=== PATIENT | female | born 1955 | race Caucasian/White ===

== ENCOUNTER 2020-02-02 06:00 | Day surgery (SDC) | payer MEDICARE, MEDICAID ==
[~2020-02-02] VITALS: Ht 165.1 cm; Wt 105.6 kg
[2020-02-02] VITALS (11 sets, daily range): BP systolic 102–138; BP diastolic 55–88
[~2020-02-02 06:00] MED LIST: ALPR-624 PO; BUPR300T53 PO; GABA300C PO; LORA10TA61 PO; METOPROLOL PO; MONT10TA21 PO; OMEP20CA4 PO; SIMV20TA PO; ZOLP10TA5 PO
[2020-02-02] MEDS ORDERED: normal saline 1,000 ML IV SCH ×2 (06:15→09:20)
[2020-02-02] MEDS ORDERED: diphenhydrAMINE 25mg capsule PO PRN (06:15)
[2020-02-02 06:45] LABS: BASOPHILS # (AUTO) 0.1 X10'3 (0-0.2); BASOPHILS % (AUTO) 1.1 % (0-1); EOSINOPHILS # (AUTO) 0.1 X10'3 (0-0.9); EOSINOPHILS % (AUTO) 2.1 % (0-6); HEMATOCRIT 42.3 % (35.0-45.0); LYMPHOCYTES # (AUTO) 2.1 X10'3 (1.1-4.8); LYMPHOCYTES % (AUTO) 31.3 % (21-51); MEAN CORPUSCULAR HEMOGLOBIN 30.9 PG (27.0-31.0); MEAN CORPUSCULAR HGB CONC 33.1 g/dL (33.0-36.5); MEAN CORPUSCULAR VOLUME 93.5 FL (78-98); MEAN PLATELET VOLUME 7.4 FL (7.4-10.4); MONOCYTES # (AUTO) 0.7 X10'3 (0-0.9); MONOCYTES % (AUTO) 10.9 % (2-12); NEUTROPHILS # (AUTO) 3.7 X10'3 (1.8-7.7); NEUTROPHILS % (AUTO) 54.6 % (42-75); PLATELET COUNT 222 X10'3 (140-440); RED BLOOD COUNT 4.53 X10'6 (4.20-5.60); RED CELL DISTRIBUTION WIDTH 13.4 % (11.5-14.5); WHITE BLOOD COUNT 6.9 X10'3 (4.5-11.0)
[2020-02-02] MEDS ORDERED: SPIR25TA5 PO (06:45)
[2020-02-02] MEDS ORDERED: CHOL20004 PO (06:45)
[2020-02-02] MEDS ORDERED: SOTA80TA46 PO (06:46)
[2020-02-02] MEDS ORDERED: ACET-812 PO (06:47)
[2020-02-02 07:05] LABS: ALBUMIN 3.8 G/DL (3.4-5.0); ANION GAP 8 (8-16); BLOOD UREA NITROGEN 14 MG/DL (7-18); CALCIUM 9.4 MG/DL (8.5-10.1); CHLORIDE 105 MMOL/L (99-107); GLUCOSE 106 MG/DL (70-104); MAGNESIUM 1.9 MG/DL (1.5-2.4); SODIUM 142 MMOL/L (135-145); eGFR 56 ML/MIN
[2020-02-02] MEDS ORDERED: iohexol 350 MG/ML 50ML vial IV ONE (07:34)
[2020-02-02] MEDS ORDERED: iohexol 350MG/ML 100ml bottle IV ONE (07:34)
[2020-02-02] MEDS ORDERED: fentaNYL/PF 50MCG/1 ML 2ML syringe ONE (07:34)
[2020-02-02] MEDS ORDERED: LIDOcaine 1% (10mg/ml)w/preservative injection 20ml MDV ONE (07:34)
[2020-02-02] MEDS ORDERED: heparin 1,000unit/ml 10ml vial 10 ML ONE (07:34)
[2020-02-02] MEDS ORDERED: midazolam 2 mg/2 ml injection ONE ×2 (07:34→08:01)
[2020-02-02] MEDS ORDERED: verapamil 2.5 mg/ml inj IV ONE (08:01)
[2020-02-02] MEDS ORDERED: nitroGLYCERIN-Tridil 50MG/D5W 250 ML IV ONE (08:01)
== END 2020-02-02 14:00 | disposition home or self-care (01) ==
LOC: SSTAY O 06:00
PROVIDERS: ATTEND Internal Medicine Cardiovascular Disease
DX: R07.89 Other chest pain (principal); I47.2 Ventricular tachycardia; I42.0 Dilated cardiomyopathy; E78.00 Pure hypercholesterolemia, unspecified; K21.9 Gastro-esophageal reflux disease without esophagitis; I10 Essential (primary) hypertension; Z85.830 Personal history of malignant neoplasm of bone; Z88.2 Allergy status to sulfonamides; Z98.890 Other specified postprocedural states; Z90.710 Acquired absence of both cervix and uterus; Z90.49 Acquired absence of other specified parts of digestive tract
CPT/HCPCS: 36415; 80048; 83735; 85025; 85610; 93005; 93458; 99152; 99153; C1769; C1894; J1644; J2001; J2250; J3010; J7030; Q0163; Q9967; A6258; C1760; J3490

== ENCOUNTER 2020-02-19 10:35 | Outpatient (CLI) | payer MEDICARE, MEDICAID ==
[~2020-02-19 10:35] MED LIST changes: +ACET-812 PO; +CHOL20004 PO; -LORA10TA61 PO; -METOPROLOL PO; -MONT10TA21 PO; +SOTA80TA46 PO; +SPIR25TA5 PO
== END 2020-02-19 23:59 | disposition home or self-care (01) ==
LOC: VAS 10:35
PROVIDERS: ATTEND Podiatrist Foot & Ankle Surgery
DX: M79.672 Pain in left foot (principal)
CPT/HCPCS: 93971

== ENCOUNTER 2021-02-28 13:17 | Emergency (ER) | payer MEDICARE, MEDICAID ==
[~2021-02-28] VITALS: Ht 165.1 cm; Wt 106.8 kg
[2021-02-28] MEDS ORDERED: COROTSUS OT (16:27)
[2021-02-28 16:54] VITALS: BP 153/84
--- NOTE | 2021-02-28 16:56 | NUR ---
i dc'd pt at [id number]
== END 2021-02-28 16:55 | disposition home or self-care (01) ==
LOC: ER 13:18
DX: M79.604 Pain in right leg (principal); H60.91 Unspecified otitis externa, right ear; I10 Essential (primary) hypertension; Z87.891 Personal history of nicotine dependence; Z98.890 Other specified postprocedural states; Z59.0 Homelessness; Z72.89 Other problems related to lifestyle; Z88.2 Allergy status to sulfonamides; Z79.899 Other long term (current) drug therapy
CPT/HCPCS: 93971; 99284

== ENCOUNTER 2021-05-11 12:04 | Emergency (ER) | payer MEDICARE, MEDICAID ==
[~2021-05-11] VITALS: Ht 165.1 cm; Wt 110.0 kg
[~2021-05-11 12:04] MED LIST changes: +COROTSUS OT
[2021-05-11 12:29] VITALS: BP 196/94
[2021-05-11] MEDS ORDERED: LIDOcaine 1% W/epiNEPHrine 1:200,000 10ml vial IJ ONE (12:30)
[2021-05-11] MEDS ORDERED: TETanus/Pertussis (Acell)/Diphther VAC/PF (Tdap-Adult) 0.5ml syringe IMVAC ONE (12:30)
== END 2021-05-11 17:47 | disposition home or self-care (01) ==
LOC: ER 12:05
DX: S51.812A Laceration without foreign body of left forearm, initial encounter (principal); I10 Essential (primary) hypertension; Z95.0 Presence of cardiac pacemaker; Z72.89 Other problems related to lifestyle; Z85.9 Personal history of malignant neoplasm, unspecified; Z88.2 Allergy status to sulfonamides; Z79.899 Other long term (current) drug therapy; W25.XXXA Contact with sharp glass, initial encounter; Y93.01 Activity, walking, marching and hiking; Y92.89 Other specified places as the place of occurrence of the external cause; Y99.8 Other external cause status
CPT/HCPCS: 12002; 73110; 90471; 90715; 99283

== ENCOUNTER 2024-09-29 10:11 | Emergency (ER) | payer MEDICARE, MEDICAID ==
[~2024-09-29] VITALS: Ht 165.1 cm; Wt 100.0 kg
[~2024-09-29 10:11] MED LIST changes: -ACET-812 PO; +ALBU18HF2 INH; +ASPI-1 PO; +AZEL137S4 BOTHNARES; +BUDE10.22 INH; +CETI10TA14 PO; -COROTSUS OT; +FLUT16SP2 BOTHNARES; +MET0.75G TP; +MULT-25 PO; +NITR0.4T51 SL; -OMEP20CA4 PO; +PANT40TA54 PO; +ROSU40TA PO; -SIMV20TA PO; -ZOLP10TA5 PO
[2024-09-29 10:16] VITALS: TEMP 98.2
[2024-09-29] MEDS: normal saline 1000ML IV soln IVB ONE ×2 (10:49→13:34)
[2024-09-29 11:20] LABS: BASOPHILS % (AUTO) 0.3 % (0-1); EOSINOPHILS % (AUTO) 0.1 % (0-6); HEMATOCRIT 38.8 % (35.0-45.0); HEMOGLOBIN 13.3 g/dl (12.0-16.0); LYMPHOCYTES # (AUTO) 0.8 X10'3 (1.1-4.8); MEAN CORPUSCULAR HEMOGLOBIN 32.1 PG (27.0-31.0); MEAN CORPUSCULAR HGB CONC 34.2 g/dL (33.0-36.5); MEAN CORPUSCULAR VOLUME 93.9 FL (78-98); MEAN PLATELET VOLUME 8.4 FL (7.4-10.4); MONOCYTES % (AUTO) 19.7 % (2-12); NEUTROPHILS # (AUTO) 7.4 X10'3 (1.8-7.7); NEUTROPHILS % (AUTO) 71.9 % (42-75); PLATELET COUNT 140 X10'3 (140-440); RED BLOOD COUNT 4.13 X10'6 (4.20-5.60); RED CELL DISTRIBUTION WIDTH 13.9 % (11.5-14.5); WHITE BLOOD COUNT 10.3 X10'3 (4.5-11.0)
[2024-09-29 11:37] LABS: ALANINE AMINOTRANSFERASE 43 U/L (12-78); ALBUMIN 2.5 G/DL (3.4-5.0); ALBUMIN/GLOBULIN RATIO 0.6 (1.1-1.5); ALKALINE PHOSPHATASE 90 IU/L (46-116); ANION GAP 10 (8-16); ASPARTATE AMINO TRANSFERASE 38 U/L (10-37); BILIRUBIN,TOTAL 0.5 MG/DL (0.1-1.0); BLOOD UREA NITROGEN 23 MG/DL (7-18); BUN/CREATININE RATIO 33.3 (10.0-20.0); CALCIUM 8.8 MG/DL (8.5-10.1); CHLORIDE 100 MMOL/L (99-107); CREATININE 0.69 MG/DL (0.40-0.90); GLUCOSE 94 MG/DL (70-104); LIPASE 20 U/L (16-77); MAGNESIUM 1.6 MG/DL (1.5-2.4); SODIUM 137 MMOL/L (135-145); TOTAL CARBON DIOXIDE 26.6 MMOL/L (24-32); eCRCL 68 ML/MIN; eGFR 84 ML/MIN
[2024-09-29] MEDS: magnesium sulf-water 2g/50mL 50 ML IV ONE (11:45)
[2024-09-29] MEDS ORDERED: ONDA-243 PO (12:21)
[2024-09-29] MEDS ORDERED: POTA-205 PO (12:21)
[2024-09-29 12:54] LABS: BILIRUBIN,URINE SMALL (Neg); CLARITY,URINE SLIGHTLY CLOUDY (Clear); COLOR,URINE YELLOW (Yellow); GLUCOSE, URINE NEGATIVE (Neg); KETONES,URINE >=80 mg/dl (Neg); LEUKOCYTE ESTERASE ,URINE SMALL (Neg); NITRITES, URINE POSITIVE (Neg); OCCULT BLOOD,URINE MODERATE (Neg); PROTEIN,URINE 30 mg/dl (Neg); UROBILINOGEN,URINE 0.2 E.U/dL (0.2-1.0)
[2024-09-29 13:01] LABS: UA COLLECTION TYPE CLN CATCH MIDSTREAM
[2024-09-29 13:03] LABS: BACTERIA,URINE 2+ /HPF (Neg); MUCUS STRANDS NONE SEEN /LPF (Neg); SQUAMOUS EPITHELIAL CELL,UR FEW /LPF (FEW); TRANSITIONAL EPI CELLS,URINE FEW /HPF; WBC CLUMPS,URINE MODERATE /HPF (NEGATIVE); WBC,URINE 50-100 /HPF (0-4)
[2024-09-29] MEDS: potassium CL 10mEq/100ml bag 100 ML IV ONE (13:34)
[2024-09-29] MEDS: magnesium oxide 400mg tablet PO ONE (13:58)
[2024-09-29] MEDS: potassium Cl 20 mEq SR tablet PO STA (13:58)
[2024-09-29 14:09] VITALS: BP 156/78; PULSE 68; RESP 16; O2SAT 98
[2024-09-29] MEDS ORDERED: NITR100C PO (20:22)
== END 2024-09-29 14:10 | disposition home or self-care (01) ==
LOC: ER 10:12
DX: R19.7 Diarrhea, unspecified (principal); E86.0 Dehydration; E87.6 Hypokalemia; E83.42 Hypomagnesemia; N39.0 Urinary tract infection, site not specified; E78.00 Pure hypercholesterolemia, unspecified; J44.9 Chronic obstructive pulmonary disease, unspecified; I10 Essential (primary) hypertension; Z88.2 Allergy status to sulfonamides; Z79.82 Long term (current) use of aspirin; Z79.899 Other long term (current) drug therapy; Z90.49 Acquired absence of other specified parts of digestive tract; Z90.710 Acquired absence of both cervix and uterus; Z95.0 Presence of cardiac pacemaker
CPT/HCPCS: 80053; 81001; 83690; 83735; 85025; 87077; 87088; 87186; 96361; 96365; 99284; J3480; J7030

== ENCOUNTER 2025-02-16 10:47 | Outpatient (CLI) | payer MEDICARE, MEDICAID ==
[~2025-02-16 10:47] MED LIST changes: +NITR100C PO; +ONDA-243 PO; +POTA-205 PO
[2025-02-16] MEDS ORDERED: iohexol 300mg/ml 100ml inj. ONE (11:18)
--- NOTE | 2025-02-16 17:52 | RADIOLOGY REPORT ---
Exam: CT CT ABDOMEN PELVIS W/WO IV CONTRAST History: PELVIC AND PERINEAL PAIN Comparison Study: None Technique: Multidetector spiral CT of the abdomen and pelvis was performed from lung bases to pubic s ymphysis. Initial imaging was done without IV contrast, followed by post contrast images of the abdo men and pelvis. Intravenous contrast was administered during this examination. portal venous/arteria l/multiphase imaging was obtained. Axial, coronal and sagittal multiplanar reformats were performed b y the technologist on a separate workstation. CONTRAST: Type of contrast: Omni 300 Contrast injected: 100 ml Radiation Dose : CT Dose: CTDI volume is 33 mGy. Dose-length product is 3744 mGy*cm Findings: Lung Bases: Atelectasis and scarring in the lung bases. Liver: The liver is normal in size. No focal lesions. Normal hepatic vascular enhancement. Gallbladder and biliary Tree: Gallbladder is surgically absent. Spleen: Unremarkable Pancreas: The pancreas is normal in appearance without focal lesions or abnormal enhancement. Adrenal Glands: Unremarkable Kidneys: Mild left hydronephrosis with a calculus in the left renal pelvis measuring up to 9 mm. No r ight hydronephrosis. Bladder: Unremarkable Bowel: The stomach is grossly normal in appearance. Small bowel and colon are normal in caliber and d istribution. The appendix is not visualized; however, no secondary findings of acute appendicitis id entified. Postsurgical changes in the rectosigmoid colon. Ascites: Absent Lymphadenopathy: No mesenteric, retroperitoneal or periportal lymphadenopathy. Abdominal wall and Mesentery: Fat containing periumbilical and bilateral inguinal hernias. Vasculature: The visualized abdominal aorta is normal in size and caliber. Abdominal and pelvic vess els demonstrate normal enhancement. Pelvic Organs: The uterus is surgically absent. Musculoskeletal: Grade 1 anterolisthesis of L4 on L5. Multilevel degenerative disease. IMPRESSION: 1. Mildly obstructing calculus in the left renal pelvis measuring up to 9 mm associated with mild hyd ronephrosis. Urology evaluation is recommended. Fat containing periumbilical and bilateral inguinal h ernias. Grade 1 anterolisthesis of L4 on L5. Radiation optimization: All CT scans at this facility use at least one of these dose optimization michael hniques: Automated exposure control mA and/or kV adjustment per patient size (includes targeted exams where dose is matched to clinical indication) or iterative reconstruction. HS:Y
== END 2025-02-16 23:59 | disposition home or self-care (01) ==
LOC: RAD 10:47
PROVIDERS: ATTEND Family Medicine
DX: N13.2 Hydronephrosis with renal and ureteral calculous obstruction (principal); R10.2 Pelvic and perineal pain; J98.4 Other disorders of lung; J98.11 Atelectasis; K40.90 Unilateral inguinal hernia, without obstruction or gangrene, not specified as recurrent
CPT/HCPCS: 74178; Q9967